=== PATIENT | female | born 1965 | race Caucasian/White ===

== ENCOUNTER 2018-01-23 17:57 | Outpatient (REF) | payer BC, SELFPAY ==
[2018-01-23 21:57] LABS: Abs Immature Grans 0.02 k/cumm (0.0-0.09); Absolute Basophil Count 0.03 k/cumm (0.0-0.2); Absolute Eosinophil Count 0.25 k/cumm (0.0-0.7); Absolute Lymphocyte Count 2.97 k/cumm (1.2-3.4); Absolute Monocyte Count 0.58 k/cumm (0.11-0.7); Absolute Neutrophil Count 5.61 k/cumm (1.2-6.7); Basophils % 0.3; Eosinophils % 2.6; HCT 43.3 % (36.0-46.0); HGB 14.3 g/dL (12.0-15.5); Immature Grans % 0.2; Lymphocytes % 31.4; Mean Corpuscular Hemoglobin 30.4 pg (27.0-33.0); Mean Corpuscular Volume 92.1 fL (80-95); Mean Platelet Volume 10.5 fL (8.0-11.0); Monocytes % 6.1; Neutrophils % 59.4; Platelet Count 286 x1000/uL (130-400); RBC Distribution Width 13.1 % (11.7-14.6); White Blood Cell Count 9.46 k/cumm (4.4-10.8)
[2018-01-23 22:15] LABS: ALT 17 U/L (12-78); AST 23 U/L (15-37); Albumin 3.9 g/dL (3.4-5.0); Alkaline Phosphatase 123 U/L (46-116); Anion Gap 10.7 mmol/L (3-11); BUN 8 mg/dL (7-18); Bilirubin, Total 0.3 mg/dL (0.2-1.0); CO2 27.3 mmol/L (21.0-32.0); CREATININE 0.96 mg/dL (0.55-1.02); Chloride 103 mmol/L (98-107); Glucose 98 mg/dL (70-100); Potassium 4.2 mmol/L (3.5-5.1); Sodium 141 mmol/L (136-145); TSH (W/Ref FT4) 13.68 uIU/mL (0.358-3.74)
[2018-01-23 22:54] LABS: FREE T4 0.84 ng/dL (0.76-1.46)
== END 2018-01-23 17:58 ==
LOC: NCHCL 17:57
PROVIDERS: PCP Nurse Practitioner Family; Visit Provider Nurse Practitioner Family
DX: E03.9 Hypothyroidism, unspecified (principal); R05 Cough; I10 Essential (primary) hypertension
CPT/HCPCS: 80053; 84439; 84443; 85025

== ENCOUNTER 2018-02-02 07:58 | Outpatient (REF) | payer BC, SELFPAY ==
[2018-02-02 20:51] LABS: Anion Gap 10.4 mmol/L (3-11); BUN 13 mg/dL (7-18); CO2 25.6 mmol/L (21.0-32.0); CREATININE 1.12 mg/dL (0.55-1.02); Calcium 9.1 mg/dL (8.5-10.1); Chloride 102 mmol/L (98-107); Cholesterol 165 mg/dL (50-200); Estimated GFR 51.29 (mL/min/1.73m2); Glucose 100 mg/dL (70-100); HDL Cholesterol 33 mg/dL (40-60); LDL CHOLESTEROL 107 mg/dL (<100); Potassium 3.9 mmol/L (3.5-5.1); Sodium 138 mmol/L (136-145); Triglyceride 216 mg/dL (30-150)
[2018-02-02 21:29] LABS: Hemoglobin A1C 5.6 % (4.5-6.2)
== END 2018-02-02 07:59 ==
LOC: NCHCN 07:58
PROVIDERS: PCP Nurse Practitioner Family; Visit Provider Nurse Practitioner Family
DX: R73.03 Prediabetes (principal); I10 Essential (primary) hypertension; E66.9 Obesity, unspecified; Z13.220 Encounter for screening for lipoid disorders
CPT/HCPCS: 80048; 80061; 83721; 83036

== ENCOUNTER 2018-02-23 08:41 | Outpatient (REF) | payer BC, SELFPAY ==
[2018-02-23 21:18] LABS: TSH (W/Ref FT4) 6.18 uIU/mL (0.358-3.74)
[2018-02-23 21:47] LABS: FREE T4 0.91 ng/dL (0.76-1.46)
== END 2018-02-23 09:01 ==
LOC: LBN 08:41
PROVIDERS: PCP Nurse Practitioner Family; Visit Provider Nurse Practitioner Family
DX: E03.9 Hypothyroidism, unspecified (principal)
CPT/HCPCS: 84439; 84443

== ENCOUNTER 2019-03-21 22:07 | Outpatient (REF) | payer BC, SELFPAY ==
[2019-03-21 22:39] LABS: Abs Immature Grans 0.02 k/cumm (0.0-0.09); Absolute Basophil Count 0.02 k/cumm (0.0-0.2); Absolute Eosinophil Count 0.17 k/cumm (0.0-0.7); Absolute Lymphocyte Count 1.94 k/cumm (1.2-3.4); Absolute Monocyte Count 0.79 k/cumm (0.11-0.7); Basophils % 0.2; Eosinophils % 2.1; HCT 40.1 % (36.0-46.0); HGB 13.5 g/dL (12.0-15.5); Immature Grans % 0.2; Lymphocytes % 23.8; Mean Corp. HGB Concentration 33.7 g/dL (32.0-36.0); Mean Platelet Volume 10.4 fL (8.0-11.0); Monocytes % 9.7; Platelet Count 308 x1000/uL (130-400); RBC 4.36 m/cumm (4.00-5.20); RBC Distribution Width 13.1 % (11.7-14.6); White Blood Cell Count 8.14 k/cumm (4.4-10.8)
[2019-03-22 08:54] LABS: ALT 25 U/L (14-59); AST 24 U/L (15-37); Albumin 3.9 g/dL (3.4-5.0); Alkaline Phosphatase 105 U/L (46-116); Anion Gap 9.4 mmol/L (3-11); BUN 15 mg/dL (7-18); Bilirubin, Total 0.4 mg/dL (0.2-1.0); CO2 26.6 mmol/L (21.0-32.0); CREATININE 1.16 mg/dL (0.55-1.02); Calcium 9.8 mg/dL (8.5-10.1); Calculated LDL 82 mg/dL; Chloride 104 mmol/L (98-107); Cholesterol 173 mg/dL (50-200); Estimated GFR 49.06 (mL/min/1.73m2); Glucose 87 mg/dL (70-100); HDL Cholesterol 30 mg/dL (40-60); Potassium 3.8 mmol/L (3.5-5.1); Sodium 140 mmol/L (136-145); TSH (W/Ref FT4) 5.64 uIU/mL (0.36-3.74); Total Protein 7.8 g/dL (6.4-8.2); Triglyceride 306 mg/dL (30-150)
[2019-03-22 09:15] LABS: FREE T4 0.76 ng/dL (0.76-1.46)
== END 2019-03-21 22:27 ==
LOC: NCHCN 22:07
PROVIDERS: PCP Nurse Practitioner Family; Visit Provider Family Medicine
DX: R53.83 Other fatigue (principal); E03.9 Hypothyroidism, unspecified; R73.03 Prediabetes; F41.9 Anxiety disorder, unspecified; I10 Essential (primary) hypertension; E66.9 Obesity, unspecified; R42 Dizziness and giddiness
CPT/HCPCS: 80053; 80061; 84439; 84443; 85025

== ENCOUNTER 2020-03-04 14:32 | Outpatient (REF) | payer BC, SELFPAY ==
[2020-03-04 21:10] LABS: Calculated LDL 52 mg/dL (<100); Cholesterol 115 mg/dL (<200); HDL Cholesterol 28 mg/dL (40-60); TSH (W/Ref FT4) 0.02 uIU/mL (0.36-3.74); Triglyceride 179 mg/dL (<150)
[2020-03-04 21:37] LABS: FREE T4 1.41 ng/dL (0.76-1.46)
== END 2020-03-04 14:52 ==
LOC: NCHCN 14:32
PROVIDERS: PCP Nurse Practitioner Family; Visit Provider Nurse Practitioner Family
DX: E03.9 Hypothyroidism, unspecified (principal); E78.6 Lipoprotein deficiency
CPT/HCPCS: 80061; 84439; 84443

== ENCOUNTER 2020-04-15 08:23 | Outpatient (REF) | payer BC, SELFPAY ==
[2020-04-15 21:35] LABS: TSH 0.03 uIU/mL (0.36-3.74)
== END 2020-04-15 08:43 ==
LOC: NCHCN 08:23
PROVIDERS: PCP Nurse Practitioner Family; Visit Provider Nurse Practitioner Family
DX: E03.9 Hypothyroidism, unspecified (principal)
CPT/HCPCS: 84443

== ENCOUNTER 2020-06-03 15:46 | Outpatient (REF) | payer BC, SELFPAY ==
[2020-06-03 21:39] LABS: TSH 0.12 uIU/mL (0.36-3.74)
== END 2020-06-03 16:06 ==
LOC: NCHCN 15:46
PROVIDERS: PCP Nurse Practitioner Family; Visit Provider Nurse Practitioner Family
DX: E03.9 Hypothyroidism, unspecified (principal)
CPT/HCPCS: 84443

== ENCOUNTER 2020-07-18 20:54 | Outpatient (REF) | payer BC, SELFPAY | END 2020-07-18 20:55 | disposition home or self-care (01) | LOC: NCHCN 20:54 | PROVIDERS: PCP Nurse Practitioner Family; Visit Provider Nurse Practitioner Family | DX: E03.9 Hypothyroidism, unspecified (principal) | CPT/HCPCS: 84443 ==

== ENCOUNTER 2020-08-26 10:38 | Outpatient (REF) | payer BC, SELFPAY ==
[2020-08-26 13:59] LABS: Hemoglobin A1C 6.7 % (<5.7)
[2020-08-26 14:01] LABS: Anion Gap 9.9 mmol/L (3-11); BUN 12 mg/dL (7-18); CO2 31.1 mmol/L (21.0-32.0); CREATININE 0.9 mg/dL (0.55-1.02); Calcium 9.8 mg/dL (8.5-10.1); Chloride 100 mmol/L (98-107); Glucose 107 mg/dL (74-106); Potassium 3.1 mmol/L (3.5-5.1); Sodium 141 mmol/L (136-145)
== END 2020-08-26 10:39 | disposition home or self-care (01) ==
LOC: NCHCN 10:38
PROVIDERS: PCP Nurse Practitioner Family; Visit Provider Nurse Practitioner Family
DX: I10 Essential (primary) hypertension (principal); R73.03 Prediabetes; E03.9 Hypothyroidism, unspecified
CPT/HCPCS: 80048; 83036; 84443

== ENCOUNTER 2020-09-23 12:25 | Outpatient (REF) | payer BC, SELFPAY ==
--- NOTE | 2020-09-23 08:00 | PAPFT_PTH ---
PATIENT: Katt Patterson LOC: [facility] U#:[id number] AGE/SX: 54/F ROOM: RE09/23/[address]: Bella Humphreys : 1965 BED: DIS: 09/23/2020 SPEC #: [id number] RECD: 09/23/20 12:47 STATUS: STEFFEN NGUYEN #: [id number] MICA: 09/23/20 08:[address]: Bella Humphreys DEPT: [facility] Cytology RECD BY: Pamella Macias Tissues: 1 - CX/ENDOCX FOR PAP SMEARS Procedures: PAP THIN PREP/[facility] Screening HPV DNA PROBE Comments: [id number]
[2020-09-23 13:32] LABS: Anion Gap 10.2 mmol/L (3-11); BUN 13 mg/dL (7-18); CO2 26.8 mmol/L (21.0-32.0); Calcium 9.5 mg/dL (8.5-10.1); Chloride 107 mmol/L (98-107); Glucose 108 mg/dL (74-106); Potassium 3.5 mmol/L (3.5-5.1); Sodium 144 mmol/L (136-145)
[2020-09-23 13:56] LABS: COMMENT (LAB VIEW ONLY) 167.28 mg/dL
== END 2020-09-23 12:26 | disposition home or self-care (01) ==
LOC: NCHCN 12:25
PROVIDERS: PCP Nurse Practitioner Family; Visit Provider Nurse Practitioner Family
DX: E11.9 Type 2 diabetes mellitus without complications (principal); I10 Essential (primary) hypertension; Z12.4 Encounter for screening for malignant neoplasm of cervix; Z11.51 Encounter for screening for human papillomavirus (HPV)
CPT/HCPCS: 80048; 88142; 82043; 82570; 87624

== ENCOUNTER 2020-10-21 13:37 | Outpatient (REF) | payer BC, SELFPAY ==
[2020-10-21 15:07] LABS: ESR 33 mm/hr (0-30)
[2020-10-21 15:08] LABS: Abs Immature Grans 0.03 10^3/uL (0.0-0.06); Absolute Basophil Count 0.04 10^3/uL (0.0-0.2); Absolute Monocyte Count 0.56 10^3/uL (0.1-0.8); Absolute Neutrophil Count 6.01 10^3/uL (1.2-6.7); Basophils % 0.5; Eosinophils % 2.3; HCT 40.3 % (36.0-46.0); HGB 13.6 g/dL (11.2-15.7); Immature Grans % 0.3; Lymphocytes % 22.6; MCH 29.8 pg (27.0-33.0); MCHC 33.7 % (32.0-36.0); MCV 88.4 fL (80-95); MPV 10.3 fL (8.0-11.0); Monocytes % 6.3; Nucleated RBC 0 %; Platelet Count 300 10^3/uL (130-400); RBC 4.56 10^6/uL (3.93-5.22); RDW 12.6 % (11.7-14.6); RDW-SD 41.1 fL; WBC 8.84 10^3/uL (4.4-10.8)
[2020-10-21 15:28] LABS: ALT 30 U/L (14-59); AST 27 U/L (15-37); Albumin 3.7 g/dL (3.4-5.0); Alkaline Phosphatase 137 U/L (46-116); BUN 9 mg/dL (7-18); Bilirubin, Total 0.5 mg/dL (0.2-1.0); Calcium 9.5 mg/dL (8.5-10.1); Chloride 105 mmol/L (98-107); Glucose 103 mg/dL (74-106); Potassium 3.7 mmol/L (3.5-5.1); Sodium 142 mmol/L (136-145); Total Protein 7.5 g/dL (6.4-8.2)
[2020-10-22 10:10] LABS: HIV-1/2 Ag & Ab Screen Negative (Negative)
== END 2020-10-21 13:38 | disposition home or self-care (01) ==
LOC: NCHCN 13:37
PROVIDERS: PCP Nurse Practitioner Family; Visit Provider Nurse Practitioner Family
DX: R59.9 Enlarged lymph nodes, unspecified (principal)
CPT/HCPCS: 80053; 85652; 87389; 85025

== ENCOUNTER 2021-04-27 15:54 | Outpatient (REF) | payer BC, SELFPAY ==
[2021-04-27 21:32] LABS: Calculated LDL 38 mg/dL (<100); Cholesterol 124 mg/dL (<200); HDL Cholesterol 32 mg/dL (40-60); Triglyceride 270 mg/dL (<150)
== END 2021-04-27 15:55 | disposition home or self-care (01) ==
LOC: NCHCN 15:54
PROVIDERS: PCP Nurse Practitioner Family; Visit Provider Nurse Practitioner Family
DX: E11.9 Type 2 diabetes mellitus without complications (principal); E78.6 Lipoprotein deficiency; E78.1 Pure hyperglyceridemia
CPT/HCPCS: 80061; 83036

== ENCOUNTER 2021-12-08 15:42 | Outpatient (REF) | payer BC, SELFPAY ==
[2021-12-08 16:26] LABS: ALT 25 U/L (14-59); AST 32 U/L (15-37); Alkaline Phosphatase 125 U/L (46-116); Anion Gap 11.3 mmol/L (3-11); BUN 14 mg/dL (7-18); Bilirubin, Total 0.5 mg/dL (0.2-1.0); CO2 26.7 mmol/L (21.0-32.0); CREATININE 1.1 mg/dL (0.55-1.02); Calcium 9.6 mg/dL (8.5-10.1); Calculated LDL 26 mg/dL (<100); Chloride 100 mmol/L (98-107); Cholesterol 108 mg/dL (<200); Estimated GFR 51.57 (mL/min/1.73m2); Glucose 95 mg/dL (74-106); HDL Cholesterol 31 mg/dL (40-60); Sodium 138 mmol/L (136-145); Total Protein 8.4 g/dL (6.4-8.2); Triglyceride 259 mg/dL (<150)
[2021-12-08 18:37] LABS: Hemoglobin A1C 6.1 % (<5.7)
== END 2021-12-08 15:43 | disposition home or self-care (01) ==
LOC: NCHCN 15:42
PROVIDERS: PCP Nurse Practitioner Family; Visit Provider Nurse Practitioner Family
DX: E11.9 Type 2 diabetes mellitus without complications (principal)
CPT/HCPCS: 80053; 80061; 83036

== ENCOUNTER 2021-12-15 16:42 | Outpatient (REF) | payer BC, SELFPAY ==
[2021-12-15 15:43] LABS: ALT 28 U/L (14-59); AST 28 U/L (15-37); Albumin 3.9 g/dL (3.4-5.0); Alkaline Phosphatase 121 U/L (46-116); BUN 12 mg/dL (7-18); Bilirubin, Total 0.6 mg/dL (0.2-1.0); Calcium 9.6 mg/dL (8.5-10.1); Chloride 103 mmol/L (98-107); Estimated GFR 57.56 (mL/min/1.73m2); GGT 41 U/L (5-55); Glucose 95 mg/dL (74-106); Potassium 3.6 mmol/L (3.5-5.1); Sodium 139 mmol/L (136-145); Total Protein 8.4 g/dL (6.4-8.2)
[2021-12-15 16:21] LABS: COMMENT (LAB VIEW ONLY) 321.01 mg/dL; Microalb ug/mg Crea 4.8 ug/mg Cr
== END 2021-12-15 16:43 | disposition home or self-care (01) ==
LOC: NCHCN 16:42
PROVIDERS: PCP Nurse Practitioner Family; Visit Provider Nurse Practitioner Family
DX: E11.9 Type 2 diabetes mellitus without complications (principal)
CPT/HCPCS: 80053; 82306; 82043; 82570; 82977; 84443

== ENCOUNTER 2022-02-23 19:01 | Outpatient (REF) | payer BC, SELFPAY ==
[2022-02-23 15:00] LABS: ALT 25 U/L (14-59); AST 25 U/L (15-37); Albumin 3.9 g/dL (3.4-5.0); Alkaline Phosphatase 119 U/L (46-116); BUN 16 mg/dL (7-18); Bilirubin, Total 0.5 mg/dL (0.2-1.0); CREATININE 1.1 mg/dL (0.55-1.02); Calcium 9.9 mg/dL (8.5-10.1); Chloride 102 mmol/L (98-107); Estimated GFR 59.34 (mL/min/1.73m2); Glucose 108 mg/dL (74-106); Potassium 3.5 mmol/L (3.5-5.1); Sodium 140 mmol/L (136-145); Total Protein 7.8 g/dL (6.4-8.2)
[2022-02-25 05:52] LABS: Vitamin D 25 Total 47.2 ng/mL (30-100)
[2022-02-25 14:59] LABS: Albumin g/dL 4.1 g/dL (3.6-5.2); Comment (See Note); Total Protein 7.6 g/dL (6.3-8.2)
[2022-02-25 17:12] LABS: Immunotyping, Serum (See Note)
== END 2022-02-23 19:02 | disposition home or self-care (01) ==
LOC: NCHCN 19:01
PROVIDERS: PCP Nurse Practitioner Family; Visit Provider Nurse Practitioner Family
DX: E55.9 Vitamin D deficiency, unspecified (principal); Z00.01 Encounter for general adult medical examination with abnormal findings
CPT/HCPCS: 80053; 82306; 84165; 86320

== ENCOUNTER 2022-03-23 18:04 | Outpatient (REF) | payer BC, SELFPAY ==
[2022-03-23 20:02] LABS: HCT 39.8 % (36.0-46.0); MCH 29.8 pg (27.0-33.0); MCHC 32.7 % (32.0-36.0); MCV 91 fL (80-95); Platelet Count 242 10^3/uL (130-400); RBC 4.36 10^6/uL (3.93-5.22); RDW 12.9 % (11.7-14.6); WBC 8.66 10^3/uL (4.4-10.8)
[2022-03-23 20:15] LABS: Hemoglobin A1C 6.3 % (<5.7)
== END 2022-03-23 18:05 | disposition home or self-care (01) ==
LOC: NCHCN 18:04
PROVIDERS: PCP Nurse Practitioner Family; Visit Provider Nurse Practitioner Family
DX: E11.9 Type 2 diabetes mellitus without complications (principal); R59.1 Generalized enlarged lymph nodes
CPT/HCPCS: 85027; 83036

== ENCOUNTER 2023-01-13 10:53 | Outpatient (REF) | payer BC, SELFPAY ==
[2023-01-13 16:16] LABS: Hemoglobin A1C 6.2 % (<5.7)
[2023-01-13 17:05] LABS: Calculated LDL 27 mg/dL (<100); Cholesterol 111 mg/dL (<200); HDL Cholesterol 33 mg/dL (40-60); Triglyceride 258 mg/dL (<150)
== END 2023-01-13 10:54 | disposition home or self-care (01) ==
LOC: NCHCN 10:53
PROVIDERS: PCP Nurse Practitioner Family; Visit Provider Family Medicine
DX: E11.8 Type 2 diabetes mellitus with unspecified complications (principal); E78.1 Pure hyperglyceridemia; E78.6 Lipoprotein deficiency
CPT/HCPCS: 80061; 83036

== ENCOUNTER 2023-02-03 14:45 | Outpatient (REF) | payer BC, SELFPAY ==
[2023-02-03 21:35] LABS: COMMENT (LAB VIEW ONLY) 178.77 mg/dL; Microalb ug/mg Crea 10.2 ug/mg Cr
== END 2023-02-03 14:46 | disposition home or self-care (01) ==
LOC: NCHCN 14:45
PROVIDERS: PCP Nurse Practitioner Family; Visit Provider Family Medicine
DX: E11.9 Type 2 diabetes mellitus without complications (principal); I10 Essential (primary) hypertension
CPT/HCPCS: 82043; 82570

== ENCOUNTER 2023-03-25 18:55 | Outpatient (REF) | payer BC, SELFPAY ==
[2023-03-25 21:03] LABS: Abs Immature Grans 0.02 10^3/uL (0.0-0.06); Absolute Basophil Count 0.03 10^3/uL (0.0-0.2); Absolute Eosinophil Count 0.11 10^3/uL (0.0-0.7); Absolute Lymphocyte Count 2.38 10^3/uL (1.2-3.4); Absolute Monocyte Count 0.47 10^3/uL (0.1-0.8); Absolute Neutrophil Count 4.21 10^3/uL (1.2-6.7); Basophils % 0.4; Eosinophils % 1.5; HCT 38.1 % (36.0-46.0); HGB 12.6 g/dL (11.2-15.7); Immature Grans % 0.3; MCH 29.6 pg (27.0-33.0); MCHC 33.1 % (32.0-36.0); MCV 90 fL (80-95); MPV 10.2 fL (8.0-11.0); Monocytes % 6.5; Neutrophils % 58.3; Platelet Count 225 10^3/uL (130-400); RBC 4.25 10^6/uL (3.93-5.22); RDW 12.7 % (11.7-14.6); RDW-SD 41.7 fL; WBC 7.22 10^3/uL (4.4-10.8)
[2023-03-25 21:45] LABS: Anion Gap 11.1 mmol/L (3-11); BUN 9 mg/dL (7-18); CO2 24.9 mmol/L (21.0-32.0); CREATININE 1.1 mg/dL (0.55-1.02); Calcium 9.7 mg/dL (8.5-10.1); Chloride 104 mmol/L (98-107); Estimated GFR 58.97 (mL/min/1.73m2); Glucose 130 mg/dL (74-106); Potassium 3.6 mmol/L (3.5-5.1); Sodium 140 mmol/L (136-145); TSH (W/Ref FT4) 5.96 uIU/mL (0.36-3.74); Vitamin B12 304 pg/mL (193-986)
[2023-03-25 21:51] LABS: Vitamin D 25 Total 27.2 ng/mL (30-100)
[2023-03-25 22:09] LABS: FREE T4 0.89 ng/dL (0.76-1.46)
== END 2023-03-25 18:56 | disposition home or self-care (01) ==
LOC: NCHCN 18:55
PROVIDERS: PCP Nurse Practitioner Family; Visit Provider Family Medicine
DX: E55.9 Vitamin D deficiency, unspecified (principal); N95.1 Menopausal and female climacteric states; R11.2 Nausea with vomiting, unspecified; I51.7 Cardiomegaly; Z13.29 Encounter for screening for other suspected endocrine disorder
CPT/HCPCS: 80048; 82306; 82607; 84439; 84443; 85025

== ENCOUNTER 2024-01-13 12:38 | Outpatient (REF) | payer BC, SELFPAY ==
[2024-01-13 14:43] LABS: BUN 9 mg/dL (7-18); CREATININE 1.2 mg/dL (0.55-1.02); Calcium 9.7 mg/dL (8.5-10.1); Chloride 103 mmol/L (98-107); Glucose 102 mg/dL (74-106); Potassium 3.6 mmol/L (3.5-5.1); Sodium 142 mmol/L (136-145)
[2024-01-13 14:53] LABS: Hemoglobin A1C 6.1 % (<5.7)
== END 2024-01-13 12:39 | disposition home or self-care (01) ==
LOC: NCHCN 12:38
PROVIDERS: PCP Nurse Practitioner Family; Visit Provider Family Medicine
DX: I10 Essential (primary) hypertension (principal); E11.9 Type 2 diabetes mellitus without complications
CPT/HCPCS: 80048; 83036

== ENCOUNTER 2024-06-13 15:24 | Outpatient (REF) | payer BC, SELFPAY ==
[2024-06-13 21:41] LABS: ALT 23 U/L (14-59); AST 26 U/L (15-37); Albumin 3.9 g/dL (3.4-5.0); Alkaline Phosphatase 103 U/L (46-116); Anion Gap 11.4 mmol/L (3-11); BUN 12 mg/dL (7-18); Bilirubin, Total 0.46 mg/dL (0.2-1.0); CO2 26.6 mmol/L (21.0-32.0); CREATININE 1.3 mg/dL (0.55-1.02); Calcium 9.5 mg/dL (8.5-10.1); Chloride 104 mmol/L (98-107); Estimated GFR 47.96 (mL/min/1.73m2); Glucose 177 mg/dL (74-106); Potassium 3.2 mmol/L (3.5-5.1); Sodium 142 mmol/L (136-145); TSH (W/Ref FT4) 8.44 uIU/mL (0.36-3.74); Total Protein 8.1 g/dL (6.4-8.2)
[2024-06-13 21:59] LABS: FREE T4 0.79 ng/dL (0.76-1.46)
[2024-06-13 22:07] LABS: Hemoglobin A1C 6.1 % (<5.7)
== END 2024-06-13 15:25 | disposition home or self-care (01) ==
LOC: NCHCN 15:24
PROVIDERS: PCP Nurse Practitioner Family; Visit Provider Family Medicine
DX: R74.9 Abnormal serum enzyme level, unspecified (principal); E03.9 Hypothyroidism, unspecified; E11.9 Type 2 diabetes mellitus without complications
CPT/HCPCS: 80053; 83036; 84439; 84443

== ENCOUNTER 2024-07-10 17:33 | Outpatient (REF) | payer BC, SELFPAY ==
--- NOTE | 2024-07-10 15:30 | SKI_PTH ---
PATIENT: Katt Patterson LOC: [facility] U#:[id number] AGE/SX: 58/F ROOM: RE07/10/[address]: Celsa Preciado : 1965 BED: DIS: 07/10/2024 SPEC #: [id number] RECD: 07/11/24 12:29 STATUS: STEFFEN NGUYEN #: [id number] MICA: 07/10/24 15:[address]: Celsa Preciado DEPT: Surgical Specimen RECD BY: Pamella Macias ENTERED: 07/11/24 12:30 SP TYPE: HALLIE SANTANA DR: Bella Humphreys Tissues: 1 - SKIN BIOPSY(SHAVE/PUNCH) Procedures: SKIN LEVEL 4 Comments: [id number]
== END 2024-07-10 17:34 | disposition home or self-care (01) ==
LOC: NCHCN 17:33
PROVIDERS: PCP Nurse Practitioner Family; Visit Provider Family Medicine
DX: L57.0 Actinic keratosis (principal)
CPT/HCPCS: 88305

== ENCOUNTER 2024-08-30 15:25 | Outpatient (REF) | payer BC, SELFPAY ==
[2024-08-30 22:16] LABS: Anion Gap 11.1 mmol/L (3-11); BUN 13 mg/dL (7-18); CO2 26.9 mmol/L (21.0-32.0); CREATININE 1.3 mg/dL (0.55-1.02); Calcium 9.9 mg/dL (8.5-10.1); Chloride 104 mmol/L (98-107); Estimated GFR 47.96 (mL/min/1.73m2); Glucose 124 mg/dL (74-106); Potassium 3.9 mmol/L (3.5-5.1); Sodium 142 mmol/L (136-145); TSH (W/Ref FT4) 4.91 uIU/mL (0.36-3.74)
[2024-08-30 22:32] LABS: FREE T4 1.02 ng/dL (0.76-1.46)
== END 2024-08-30 15:26 | disposition home or self-care (01) ==
LOC: NCHCN 15:25
PROVIDERS: PCP Nurse Practitioner Family; Visit Provider Family Medicine
DX: I10 Essential (primary) hypertension (principal); E03.9 Hypothyroidism, unspecified
CPT/HCPCS: 80048; 84439; 84443

== ENCOUNTER 2024-10-31 16:15 | Outpatient (REF) | payer BC, SELFPAY ==
[2024-10-31 21:52] LABS: TSH (W/Ref FT4) 3.54 uIU/mL (0.36-3.74)
== END 2024-10-31 16:16 | disposition home or self-care (01) ==
LOC: NCHCN 16:15
PROVIDERS: PCP Nurse Practitioner Family; Visit Provider Family Medicine
DX: E03.9 Hypothyroidism, unspecified (principal)
CPT/HCPCS: 84443